=== PATIENT | female | born 1970 | race Caucasian/White ===

== ENCOUNTER 2018-04-29 08:00 | Inpatient (IN) | payer BC ==
[~2018-04-29 08:00] MED LIST: Lactated Ringers 1,000 ML IV ONE; Sensorcaine 0.25% 10 ML ONE
[2018-04-29] MEDS ORDERED: CEFAZOLIN 2 GM-D5W BAG** 2 GM/50 ML ML IV ONE (08:20)
[2018-04-29] MEDS ORDERED: Lactated Ringers 1,000 ML IV ONE (08:20)
[2018-04-29] MEDS ORDERED: Lactated Ringers 1,000 ML IV SCH (08:30)
[2018-04-29] MEDS ORDERED: CEFAZOLIN 2 GM-D5W BAG** 2 GM/50 ML ML IV SCH (08:30)
[2018-04-29] MEDS ORDERED: Lactated Ringers 2,000 ML IV ONE (11:58)
[2018-04-29] MEDS ORDERED: DILAUDID 2 MG INJECTION ONE (13:06)
[2018-04-29] MEDS ORDERED: DILAUDID 1 MG/1ML PCA IV PRN (13:45)
[2018-04-29] MEDS ORDERED: FEVERALL 650 MG RC PRN (13:46)
[2018-04-29] MEDS ORDERED: TYLENOL 325 MG PO PRN (13:46)
[2018-04-29] MEDS: D5W/0.45NS W/ 20mEq KCl 1000 ML 1,000 ML IV SCH ×2 (13:55→23:28)
[2018-04-29] MEDS: Zofran 4 MG/2 ML VIAL IVIM PRN (14:09)
[2018-04-29] MEDS: MEFOXIN 2 GM** 2 GM in Dextrose 5%/Water IV Soln. 100ML PLUS BAG 100 ML IV SCH ×2 (14:54→21:22)
[2018-04-29] MEDS ORDERED: Zofran 4 MG/2 ML VIAL IV ONE (14:55)
[2018-04-29] MEDS ORDERED: Decadron 4 MG INJ IV ONE (14:55)
[2018-04-29] MEDS ORDERED: SUBLIMAZE 100 MCG/2 ML IV ONE (14:55)
[2018-04-29] MEDS ORDERED: TORAdol 30 mg Injection IJ ONE (14:55)
[2018-04-29] MEDS ORDERED: BRIDION 200MG/2ML IV ONE (14:55)
[2018-04-29] MEDS ORDERED: Lasix 40 MG/4 ML IV ONE (14:55)
[2018-04-29] MEDS ORDERED: DIPRIVAN 200 MG/20 ML IV ONE (14:55)
[2018-04-29] MEDS ORDERED: Zemuron 100 MG/10 ML IJ ONE (14:55)
[2018-04-29] MEDS ORDERED: DILAUDID 2 MG INJECTION IV ONE ×2 (14:55→15:30)
[2018-04-29] MEDS ORDERED: Quelicin Fliptop 200 MG/10 ML IJ ONE (14:55)
[2018-04-29] MEDS ORDERED: FLUZONE QUAD (36mo-64yo) 2018-2019 SYRINGE IM ONE (15:45)
[2018-04-29] MEDS: Carafate 1 GM PO SCH ×2 (15:49→21:22)
[2018-04-29] MEDS: DILAUDID 1 MG/1ML PCA IV PRN (16:44)
[2018-04-29] MEDS: BENADRYL 50 MG/ML IV PRN (18:10)
[2018-04-30] MEDS: BENADRYL 50 MG/ML IV PRN (00:11)
[2018-04-30] MEDS: Zofran 4 MG/2 ML VIAL IVIM PRN ×3 (02:21→20:39)
[2018-04-30 05:33] LABS: Hematocrit 41.4 % (35-47); Hemoglobin 13.8 gm/dl (12.0-16.0); Mean Cell Volume 88.7 fl (78-100); Mean Corpuscular Hemoglobin 29.6 pg (26-32); Mean Corpuscular Hgb Concent. 33.3 g/dl (32-36); Mean Platelet Volume 10.7 fl (6-9.5); Platelet Count 282 K/mm3 (150-450); Red Blood Count 4.67 M/mm3 (4.1-5.4); Red Cell Distribution Width 13.7 % (11.5-14.0)
[2018-04-30 05:41] LABS: White Blood Count 29.8 K/mm3 (4.0-10.5)
[2018-04-30] MEDS: MEFOXIN 2 GM** 2 GM in Dextrose 5%/Water IV Soln. 100ML PLUS BAG 100 ML IV SCH (05:49)
[2018-04-30 05:51] LABS: ALBUMIN 4.2 g/dL (3.5-5.0); ALKALINE PHOSPHATASE 81 U/L (38-126); BLOOD UREA NITROGEN 10 mg/dL (7-17); CHLORIDE 100 mmol/L (98-107); Calcium 8.6 mg/dL (8.4-10.2); Carbon Dioxide 27 mmol/L (22-30); Creatinine 1 0.66 mg/dL (0.52-1.04); Glucose 142 mg/dL (74-106); Potassium 4.4 mmol/L (3.5-5.1); SGOT/AST 33 U/L (14-36); SGPT/ALT 40 U/L (0-35); SODIUM 136 mmol/L (137-145); Total Protein 7.2 g/dL (6.3-8.2)
[2018-04-30] MEDS: ENOXAPARIN SODIUM SQ SCH (06:31)
[2018-04-30] MEDS: Carafate 1 GM PO SCH (06:31)
[2018-04-30] MEDS: FLAGYL 500 MG IVPB 500 MG/100 ML BAG IV SCH ×3 (06:58→21:48)
[2018-04-30 07:08] LABS: BAND 18 % (0.0-2.0); Lymphocytes 11 % (24-44); Monocyte 3 % (0.0-12.0); Neutrophils 68 % (36.0-66.0); Platelet Estimate NORMAL (NORMAL); Total Cells Counted 100
[2018-04-30 07:09] LABS: ANISOCYTOSIS 1+; Poikilocytosis 1+
[2018-04-30 07:11] LABS: ABSOLUTE NEUTROPHILS 24.89 (1.4-6.9)
[2018-04-30] MEDS: Zosyn 3.375GM/100 Ml D5W 3.375 GM/100 ML IVPB IV SCH ×3 (07:35→18:31)
[2018-04-30] MEDS ORDERED: Sodium Chloride 0.9% 500 ML 500 ML IV ONE (08:02)
[2018-04-30] MEDS: Phenergan 25 MG INJ IV PRN ×2 (08:09→14:15)
[2018-04-30] MEDS: D5W/0.45NS W/ 20mEq KCl 1000 ML 1,000 ML IV SCH ×2 (09:25→18:31)
[2018-04-30] MEDS ORDERED: Zosyn 3.375GM/100 Ml D5W 3.375 GM/100 ML IVPB IV SCH (12:00)
[2018-04-30] MEDS: DILAUDID 1 MG/1ML PCA IV PRN ×2 (12:25→18:37)
--- NOTE | 2018-04-30 16:46 | PCM.HP ---
History of Present Illness - Chief Complaint Chief Complaint: sigmoid stricture and sever adhesions. History of Present Illness: is a 47 year old female pt of [facility], Araceli Coffman NP , who came to see Dr. Mónica Kraus c/o chronic bowel issues. Hx multiple abdominal surgeries. She was scheduled for EGD/colonoscopy and found to have adhesions. Had laparoscopy and BLAKE, no colon was removed apparently. She is ordered to be on NG, unclamped, and NPO for several days. Pt has a hx of several DVT and a PE, all postoperatively. Was apparently on a blood thinner temporarily but was not prescribed one prior to admission here. Surgery ordered lovenox currently. This morning her WBC count was 29,000. Surgery started her on IV flagyl and zosyn. Her BP this morning was 90 systolic. She received a 500cc bolus of fluid and since then has been normotensive (currently 130s systolic). She has been up walking today (NG temporarily clamped for that with surgery's OK). Has used 1.6mg dilaudid today in her [employer]. - Review of Systems Constitutional: No Fever Abdominal/Gastrointestinal: Abdominal Pain, Vomiting Medications & Allergies Home Medications: Home Medication List Aspirin/Acetaminophen/Caffeine [Excedrin Migraine Caplet] 1 each PO Q6H PRN [History Confirmed 04/29/18] Hydrocodone Bit/Acetaminophen [Lortab 7.5-500 Tablet] 1 - 2 each PO Q4H PRN [History Confirmed 04/29/18] Multivitamin [Multivitamins] 1 each PO DAILY 04/21/18 [History Confirmed ] Sucralfate 1 gm [Carafate 1 GM] 1 g PO ACHS 04/21/18 [History Confirmed ] Allergies/Adverse Reactions: Allergies Allergy/AdvReac Type Severity Reaction Status Date / Time codeine Allergy Verified 04/29/18 08:31 fentanyl Allergy Verified 04/29/18 08:31 prochlorperazine Allergy Verified 04/29/18 08:31 [From Compazine] - Past Medical History Past Medical History: Yes Neurological History: No Pertinent History ENT History: No Pertinent History Cardiac History: Deep Vein Thrombosis Respiratory History: No Pertinent History Endocrine Medical History: No Pertinent History Musculoskelatal History: Other GI Medical History: Diverticulosis, Other History: No Pertinent History Pyscho-Social History: Anxiety Reproductive Disorders: Other Comment: Abdominal adhesions - Female History Are you now?: No - Past Surgical History Past Surgical History: Yes Neuro Surgical History: No Pertinent History Cardiac History: No Pertinent History Respiratory Surgery: No Pertinent History GI Surgical History: Appendectomy, Cholecystectomy Genitourinary Surgical Hx: No Pertinent History Musculskeletal Surgical Hx: No Pertinent History Female Surgical History: Hysterectomy, Tubal Ligation Other Surgical History: Lysis of abdominal adhesions x6 - Social History Smoking Status: Current every day smoker How long have you smoked: 25 years Exposure to second hand smoke: Yes Alcohol: None Drug Use: none - Physical Exam Vital Signs: Vital Signs - 24 hr Temp Pulse Resp BP Pulse Ox 04/30/18 16:01 98.6 F 94 H 20 132/78 98 04/30/18 12:25 96 04/30/18 12:00 20 96 04/30/18 11:02 98.9 F 84 20 117/67 96 04/30/18 09:40 82 18 94/68 96 04/30/18 08:59 94 L 04/30/18 07:45 20 04/30/18 06:58 99 F 90 20 90/52 96 04/30/18 06:46 95 04/30/18 05:56 94 L 04/30/18 05:00 93 L 04/30/18 04:44 96 04/30/18 04:00 17 04/30/18 03:40 98.7 F 87 18 98/58 94 L 04/30/18 01:44 93 H 20 93 L 04/30/18 00:59 93 L 04/30/18 00:44 94 L 04/30/18 00:00 17 04/29/18 23:41 97.9 F 84 17 112/73 93 L 04/29/18 20:44 94 L 04/29/18 20:00 18 94 L 04/29/18 19:33 97.9 F 88 18 110/80 93 L 04/29/18 17:53 92 L 04/29/18 17:13 86 16 92 L 04/29/18 17:12 92 L 04/29/18 16:44 93 L Oxygen-Last 24 hours O2 Percentage 4 Liters = 36% O2 Percentage 4 Liters = 36% O2 Percentage 4 Liters = 36% O2 Percentage 4 Liters = 36% O2 Percentage 4 Liters = 36% O2 Percentage 4 Liters = 36% General Appearance: mild distress (sitting quietly with a washcloth on her head , with hand on emesis bag), No obese Neurologic Exam: alert, cooperative Neck Exam: normal inspection Respiratory Exam: normal breath sounds, lungs clear, No crackles/rales, No rhonchi, No wheezing Cardiovascular Exam: regular rate/rhythm, normal heart sounds, No murmur Gastrointestinal/Abdomen Exam: soft, No normal bowel sounds (hypoactive bowel sounds but present. dressing present midline. abd binder present.) Results - Labs Lab/Micro Results: Lab Results-Last 24 Hours 04/30/18 04/30/18 Range/Units 05:10 05:36 WBC 29.8 H* (4.0-10.5) K/mm3 RBC 4.67 (4.1-5.4) M/mm3 Hgb 13.8 (12.0-16.0) gm/dl Hct 41.4 (35-47) % MCV 88.7 (78-100) fl MCH 29.6 (26-32) pg MCHC 33.3 (32-36) g/dl RDW 13.7 (11.5-14.0) % Plt Count 282 (150-450) K/mm3 MPV 10.7 H (6-9.5) fl Absolute Neutrophils 24.89 (1.4-6.9) Segmented Neutrophils 68 H (36.0-66.0) % Band Neutrophils 18 H (0.0-2.0) % Lymphocytes (Manual) 11 L (24-44) % Monocytes (Manual) 3 (0.0-12.0) % Platelet Estimate NORMAL (NORMAL) RBC Morphology ABNORMAL Poikilocytosis 1+ Anisocytosis 1+ Smear Path Review Pending Sodium 136 L (137-145) mmol/L Potassium 4.4 (3.5-5.1) mmol/L Chloride 100 (98-107) mmol/L Carbon Dioxide 27 (22-30) mmol/L Anion Gap 14.0 (5-15) MEQ/L BUN 10 (7-17) mg/dL Creatinine 0.66 (0.52-1.04) mg/dL Estimated GFR > 60.0 ML/MIN Glucose 142 H (74-106) mg/dL Calcium 8.6 (8.4-10.2) mg/dL Total Bilirubin 0.40 (0.2-1.3) mg/dL AST 33 (14-36) U/L ALT 40 H (0-35) U/L Alkaline Phosphatase 81 (38-126) U/L Serum Total Protein 7.2 (6.3-8.2) g/dL Albumin 4.2 (3.5-5.0) g/dL Microbiology 04/29/18 10:34 Urine Culture - Preliminary Urine, Catheterized NO GROWTH TO DATE - Other Procedures and Tests Respiratory Therapy 04/29/18 17:08 Oxygen NASAL CANNULA 4 lpm 04/30/18 12:01 Incentive Spirometry TID Assessment/Plan (1) s/p lysis of adhesions Current Visit: Yes Status: Acute Assessment & Plan: POD #1. Doing much better this afternoon - BP normalized and pt out of bed. Recheck WBC tomorrow. (2) Hx of deep venous thrombosis Current Visit: Yes Status: Chronic Code(s): Z86.718 - PERSONAL HISTORY OF OTHER VENOUS THROMBOSIS AND EMBOLISM (3) Elevated WBC count Current Visit: Yes Status: Acute Code(s): D72.829 - ELEVATED WHITE BLOOD CELL COUNT, UNSPECIFIED
[2018-05-01] MEDS: Zosyn 3.375GM/100 Ml D5W 3.375 GM/100 ML IVPB IV SCH ×4 (00:07→17:37)
[2018-05-01] MEDS: Phenergan 25 MG INJ IV PRN ×5 (00:17→22:42)
[2018-05-01] MEDS: D5W/0.45NS W/ 20mEq KCl 1000 ML 1,000 ML IV SCH ×3 (03:17→20:31)
[2018-05-01] MEDS: Zofran 4 MG/2 ML VIAL IVIM PRN ×2 (03:17→10:52)
[2018-05-01 05:14] LABS: Hematocrit 36.8 % (35-47); Hemoglobin 12.1 gm/dl (12.0-16.0); Mean Cell Volume 90.2 fl (78-100); Mean Corpuscular Hgb Concent. 32.9 g/dl (32-36); Mean Platelet Volume 10.8 fl (6-9.5); Platelet Count 251 K/mm3 (150-450); Red Blood Count 4.08 M/mm3 (4.1-5.4); Red Cell Distribution Width 13.7 % (11.5-14.0); White Blood Count 22.2 K/mm3 (4.0-10.5)
[2018-05-01 05:19] LABS: Mean Corpuscular Hemoglobin 29.6 pg (26-32)
[2018-05-01 05:30] LABS: ALBUMIN 3.7 g/dL (3.5-5.0); ALKALINE PHOSPHATASE 82 U/L (38-126); ANION GAP 11.2 MEQ/L (5-15); BLOOD UREA NITROGEN 6 mg/dL (7-17); CHLORIDE 100 mmol/L (98-107); Calcium 8.5 mg/dL (8.4-10.2); Carbon Dioxide 28 mmol/L (22-30); Creatinine 1 0.66 mg/dL (0.52-1.04); Glucose 139 mg/dL (74-106); Potassium 3.9 mmol/L (3.5-5.1); SGOT/AST 25 U/L (14-36); SGPT/ALT 31 U/L (0-35); SODIUM 135 mmol/L (137-145); Total Protein 6.8 g/dL (6.3-8.2)
[2018-05-01] MEDS: FLAGYL 500 MG IVPB 500 MG/100 ML BAG IV SCH ×3 (06:18→21:19)
[2018-05-01] MEDS: ENOXAPARIN SODIUM SQ SCH (06:22)
--- NOTE | 2018-05-01 07:50 | PCM.NOTE ---
Date and Time: 05/01/18747 Subjective Assessment: patient still having signficant pain and nausea, NG still has large output of dark material. no flatus or BM Objective Exam General Appearance: no apparent distress, alert Respiratory Exam: normal breath sounds, lungs clear, No respiratory distress Cardiovascular Exam: regular rate/rhythm, normal heart sounds Gastrointestinal/Abdomen Exam: soft, No normal bowel sounds (absent bowel sounds dressing clean, dry, intact) Extremity Exam: normal inspection, normal range of motion OBJECTIVE DATA Vital Signs: Vital Signs - 24 hr Temp Pulse Resp BP Pulse Ox 05/01/18 07:25 98.6 F 77 20 124/63 93 L 05/01/18 06:33 92 L 05/01/18 04:20 98.7 F 102 H 18 123/62 92 L 05/01/18 04:00 20 05/01/18 02:37 92 L 05/01/18 00:10 98.8 F 99 H 17 122/63 91 L 05/01/18 00:00 18 04/30/18 22:37 92 L 04/30/18 20:20 85 18 92 L 04/30/18 20:00 20 04/30/18 18:55 99.2 F 90 16 120/59 94 L 04/30/18 18:47 94 L 04/30/18 18:37 94 L 04/30/18 16:10 93 L 04/30/18 16:01 98.6 F 94 H 20 132/78 98 04/30/18 12:25 96 04/30/18 12:00 20 96 04/30/18 11:02 98.9 F 84 20 117/67 96 04/30/18 09:40 82 18 94/68 96 04/30/18 08:59 94 L Oxygen-Last 24 hours O2 Percentage 4 Liters = 36% O2 Percentage 4 Liters = 36% O2 Percentage 4 Liters = 36% O2 Percentage 4 Liters = 36% O2 Percentage 4 Liters = 36% O2 Percentage 4 Liters = 36% Pain Assessment - Last Documented Pain Intensity [Anterior] 4 Pain Intensity 3 Pain Scale Used 0-10 Pain Scale,FLACC Intake and Output: Intake & Output 04/28/18 04/29/18 04/30/18 05/01/18 11:59 11:59 11:59 11:59 Intake Total 1708 3859 Output Total 1500 2600 Balance 208 1259 Weight 83.2 kg 83.2 kg Lab Results: Lab Results-Last 24 Hours 05/01/18 05/01/18 Range/Units 05:05 05:05 WBC 22.2 H (4.0-10.5) K/mm3 RBC 4.08 L (4.1-5.4) M/mm3 Hgb 12.1 (12.0-16.0) gm/dl Hct 36.8 (35-47) % MCV 90.2 (78-100) fl MCH 29.6 (26-32) pg MCHC 32.9 (32-36) g/dl RDW 13.7 (11.5-14.0) % Plt Count 251 (150-450) K/mm3 MPV 10.8 H (6-9.5) fl Sodium 135 L (137-145) mmol/L Potassium 3.9 (3.5-5.1) mmol/L Chloride 100 (98-107) mmol/L Carbon Dioxide 28 (22-30) mmol/L Anion Gap 11.2 (5-15) MEQ/L BUN 6 L (7-17) mg/dL Creatinine 0.66 (0.52-1.04) mg/dL Estimated GFR > 60.0 ML/MIN Glucose 139 H (74-106) mg/dL Calcium 8.5 (8.4-10.2) mg/dL Total Bilirubin 0.40 (0.2-1.3) mg/dL AST 25 (14-36) U/L ALT 31 (0-35) U/L Alkaline Phosphatase 82 (38-126) U/L Serum Total Protein 6.8 (6.3-8.2) g/dL Albumin 3.7 (3.5-5.0) g/dL Multi-Disciplinary Progress Notes: Multi-Disciplinary Progress Notes 04/30/18 14:26 Respiratory Note by Daria Ortiz PT DOING INCENTIVE ON OWN Initialized on 04/30/18 14:26 - END OF NOTE Assessment/Plan (1) Elevated WBC count Current Visit: Yes Status: Acute Assessment & Plan: improved, continue zosyn and flagyl at this time and continue to follow. encouraged ambulation to help resolve post-op ileus Code(s): D72.829 - ELEVATED WHITE BLOOD CELL COUNT, UNSPECIFIED (2) s/p lysis of adhesions Current Visit: Yes Status: Acute
[2018-05-01] MEDS ORDERED: CHLORASEPTIC SPRAY 180 ML PO PRN (09:19)
[2018-05-01] MEDS: Zofran 4 MG/2 ML VIAL IV PRN ×2 (15:35→20:31)
[2018-05-01] MEDS ORDERED: PROTONIX 40 MG IV IV ONE (17:34)
[2018-05-01] MEDS ORDERED: PROTONIX 40 MG IV IV SCH (17:45)
[2018-05-01] MEDS: DILAUDID 1 MG/1ML PCA IV PRN (18:08)
[2018-05-01] MEDS: BENADRYL 50 MG/ML IV PRN (20:31)
[2018-05-02] MEDS: Zofran 4 MG/2 ML VIAL IV PRN ×3 (00:36→16:07)
[2018-05-02] MEDS: Zosyn 3.375GM/100 Ml D5W 3.375 GM/100 ML IVPB IV SCH ×4 (00:37→17:26)
[2018-05-02] MEDS: D5W/0.45NS W/ 20mEq KCl 1000 ML 1,000 ML IV SCH ×2 (05:25→13:06)
[2018-05-02 05:42] LABS: Hematocrit 33.9 % (35-47); Hemoglobin 11.2 gm/dl (12.0-16.0); Mean Cell Volume 89.7 fl (78-100); Mean Corpuscular Hemoglobin 29.6 pg (26-32); Mean Platelet Volume 11.1 fl (6-9.5); Platelet Count 235 K/mm3 (150-450); Red Blood Count 3.78 M/mm3 (4.1-5.4); Red Cell Distribution Width 13.4 % (11.5-14.0); White Blood Count 18.4 K/mm3 (4.0-10.5)
[2018-05-02 06:04] LABS: ALBUMIN 3.6 g/dL (3.5-5.0); ALKALINE PHOSPHATASE 88 U/L (38-126); ANION GAP 9.7 MEQ/L (5-15); BLOOD UREA NITROGEN 5 mg/dL (7-17); CHLORIDE 98 mmol/L (98-107); Calcium 8.4 mg/dL (8.4-10.2); Carbon Dioxide 31 mmol/L (22-30); Glucose 133 mg/dL (74-106); Potassium 3.7 mmol/L (3.5-5.1); SGOT/AST 24 U/L (14-36); SGPT/ALT 28 U/L (0-35); SODIUM 135 mmol/L (137-145); Total Protein 6.6 g/dL (6.3-8.2)
[2018-05-02] MEDS: FLAGYL 500 MG IVPB 500 MG/100 ML BAG IV SCH ×3 (06:09→21:37)
[2018-05-02] MEDS: ENOXAPARIN SODIUM SQ SCH (06:12)
--- NOTE | 2018-05-02 08:29 | PCM.NOTE ---
Date and Time: 05/02/18827 Subjective Assessment: patient feeling better, out of bed x 3 yesterday. has had some flatus, no bowel movement since surgery Objective Exam General Appearance: no apparent distress, alert Respiratory Exam: normal breath sounds Cardiovascular Exam: regular rate/rhythm, normal heart sounds Gastrointestinal/Abdomen Exam: soft (dressing c/d/i, abdomen soft. decreased audible bowel sounds) Extremity Exam: normal inspection, normal range of motion OBJECTIVE DATA Vital Signs: Vital Signs - 24 hr Temp Pulse Resp BP Pulse Ox 05/02/18 07:57 97.7 F 77 18 137/79 91 L 05/02/18 07:38 84 18 93 L 05/02/18 06:08 91 L 05/02/18 04:17 97.7 F 74 18 135/73 87 L 05/02/18 04:00 18 05/02/18 02:08 92 L 05/02/18 00:00 18 05/01/18 23:58 98.7 F 91 H 18 136/85 92 L 05/01/18 22:08 92 L 05/01/18 21:27 95 05/01/18 19:57 16 05/01/18 19:28 98.2 F 88 16 125/81 93 L 05/01/18 18:08 93 L 05/01/18 16:00 20 93 L 05/01/18 15:42 98.7 F 99 H 20 138/88 92 L 05/01/18 12:00 20 05/01/18 11:21 97.8 F 97 H 20 123/74 93 L 05/01/18 11:18 93 L 05/01/18 09:32 93 L Oxygen-Last 24 hours O2 Percentage 4 Liters = 36% O2 Percentage 4 Liters = 36% O2 Percentage 4 Liters = 36% O2 Percentage 4 Liters = 36% O2 Percentage 4 Liters = 36% O2 Percentage 4 Liters = 36% Pain Assessment - Last Documented Pain Intensity [Anterior] 4 Pain Intensity 4 Pain Scale Used 0-10 Pain Scale,FLACC Intake and Output: Intake & Output 04/29/18 04/30/18 05/01/18 05/02/18 11:59 11:59 11:59 11:59 Intake Total 1708 3859 3305 Output Total 1500 2850 1575 Balance 208 1009 1730 Weight 83.2 kg 83.2 kg Lab Results: Lab Results-Last 24 Hours 05/02/18 05/02/18 Range/Units 05:15 05:15 WBC 18.4 H (4.0-10.5) K/mm3 RBC 3.78 L (4.1-5.4) M/mm3 Hgb 11.2 L (12.0-16.0) gm/dl Hct 33.9 L (35-47) % MCV 89.7 (78-100) fl MCH 29.6 (26-32) pg MCHC 33.0 (32-36) g/dl RDW 13.4 (11.5-14.0) % Plt Count 235 (150-450) K/mm3 MPV 11.1 H (6-9.5) fl Sodium 135 L (137-145) mmol/L Potassium 3.7 (3.5-5.1) mmol/L Chloride 98 (98-107) mmol/L Carbon Dioxide 31 H (22-30) mmol/L Anion Gap 9.7 (5-15) MEQ/L BUN 5 L (7-17) mg/dL Creatinine 0.60 (0.52-1.04) mg/dL Estimated GFR > 60.0 ML/MIN Glucose 133 H (74-106) mg/dL Calcium 8.4 (8.4-10.2) mg/dL Total Bilirubin 0.40 (0.2-1.3) mg/dL AST 24 (14-36) U/L ALT 28 (0-35) U/L Alkaline Phosphatase 88 (38-126) U/L Serum Total Protein 6.6 (6.3-8.2) g/dL Albumin 3.6 (3.5-5.0) g/dL Assessment/Plan (1) Elevated WBC count Current Visit: Yes Status: Acute Assessment & Plan: improving, continue zosyn and flagyl Code(s): D72.829 - ELEVATED WHITE BLOOD CELL COUNT, UNSPECIFIED (2) Postoperative ileus Current Visit: Yes Status: Acute Assessment & Plan: will defer to surgery when to clamp/remove NG but improving clinically Code(s): K91.89 - OTH POSTPROCEDURAL COMPLICATIONS AND DISORDERS OF DGSTV SYS; K56.7 - ILEUS, UNSPECIFIED (3) s/p lysis of adhesions Current Visit: Yes Status: Acute
[2018-05-02] MEDS: Phenergan 25 MG INJ IV PRN ×3 (08:41→19:54)
[2018-05-02] MEDS: PROTONIX 40 MG IV IV SCH (21:39)
[2018-05-03] MEDS: Zosyn 3.375GM/100 Ml D5W 3.375 GM/100 ML IVPB IV SCH ×5 (00:03→23:15)
[2018-05-03] MEDS: DILAUDID 1 MG/1ML PCA IV PRN ×2 (00:47→23:18)
[2018-05-03] MEDS: D5W/0.45NS W/ 20mEq KCl 1000 ML 1,000 ML IV SCH ×5 (01:35→21:31)
[2018-05-03 05:47] LABS: Hematocrit 34.1 % (35-47); Hemoglobin 11.2 gm/dl (12.0-16.0); Mean Cell Volume 89.7 fl (78-100); Mean Corpuscular Hgb Concent. 32.8 g/dl (32-36); Mean Platelet Volume 10.8 fl (6-9.5); Platelet Count 251 K/mm3 (150-450); Red Cell Distribution Width 13.2 % (11.5-14.0)
[2018-05-03 05:48] LABS: Mean Corpuscular Hemoglobin 29.4 pg (26-32)
[2018-05-03 06:12] LABS: ALBUMIN 3.4 g/dL (3.5-5.0); ALKALINE PHOSPHATASE 88 U/L (38-126); ANION GAP 9.6 MEQ/L (5-15); BLOOD UREA NITROGEN 5 mg/dL (7-17); CHLORIDE 97 mmol/L (98-107); Calcium 8.6 mg/dL (8.4-10.2); Carbon Dioxide 34 mmol/L (22-30); Creatinine 1 0.69 mg/dL (0.52-1.04); Glucose 121 mg/dL (74-106); Potassium 3.4 mmol/L (3.5-5.1); SGOT/AST 17 U/L (14-36); SGPT/ALT 25 U/L (0-35); SODIUM 137 mmol/L (137-145); Total Protein 6.5 g/dL (6.3-8.2)
[2018-05-03] MEDS: ENOXAPARIN SODIUM SQ SCH (06:24)
[2018-05-03] MEDS: FLAGYL 500 MG IVPB 500 MG/100 ML BAG IV SCH ×3 (06:24→21:31)
[2018-05-03] MEDS ORDERED: TORAdol 30 mg Injection IV ONE ×2 (08:30→15:20)
--- NOTE | 2018-05-03 08:33 | PCM.NOTE ---
Date and Time: 05/03/18821 Subjective Assessment: Pt feeling better. Up to bathroom; has had a BM (green, no blood). Sipping water, but would like "anything with taste." Using dilaudid [employer]GET[employer] infrequently. C/o CURIEL for the past several days (she feels dilaudid exacerbates her CURIEL). - Review of Systems Constitutional: No Fever Abdominal/Gastrointestinal: Abdominal Pain Objective Exam General Appearance: no apparent distress, alert Neurologic Exam: oriented x 3, cooperative Skin Exam: normal color, warm, dry, No rash Ears, Nose, Throat Exam: moist mucous membranes Neck Exam: normal inspection Respiratory Exam: normal breath sounds, lungs clear, No crackles/rales, No rhonchi, No wheezing Cardiovascular Exam: regular rate/rhythm, normal heart sounds, No murmur Gastrointestinal/Abdomen Exam: soft, tenderness (generalized), other (dressing clean/dry/intact), No normal bowel sounds (hypoactive, but present), No distention Extremity Exam: No pedal edema, No swelling OBJECTIVE DATA Vital Signs: Vital Signs - 24 hr Temp Pulse Resp BP Pulse Ox 05/03/18 07:48 99.3 F 81 18 116/66 96 05/03/18 07:18 98 05/03/18 04:47 92 L 05/03/18 04:16 98.6 F 88 16 125/76 95 05/03/18 04:00 18 05/03/18 00:47 96 05/03/18 00:00 18 05/02/18 23:31 99.2 F 91 H 16 106/56 96 05/02/18 20:00 18 05/02/18 19:40 98.9 F 88 18 117/70 94 L 05/02/18 16:00 98.7 F 75 18 128/70 94 L 05/02/18 11:46 97.7 F 83 20 142/79 94 L 05/02/18 11:18 16 05/02/18 10:08 92 L 05/02/18 08:40 18 Oxygen-Last 24 hours O2 Percentage 5 Liters = 40% O2 Percentage 4 Liters = 36% O2 Percentage 4 Liters = 36% O2 Percentage 4 Liters = 36% O2 Percentage 4 Liters = 36% O2 Percentage 5 Liters = 40% Pain Assessment - Last Documented Pain Intensity [Anterior] 4 Pain Intensity 4 Pain Scale Used 0-10 Pain Scale,FLACC Intake and Output: Intake & Output 04/30/18 05/01/18 05/02/18 05/03/18 11:59 11:59 11:59 11:59 Intake Total 1708 3859 3305 1278 Output Total 1500 2850 1575 3100 Balance 208 1009 1730 -1822 Weight 83.2 kg Lab Results: Lab Results-Last 24 Hours 05/03/18 05/03/18 Range/Units 05:30 05:30 WBC 13.0 H (4.0-10.5) K/mm3 RBC 3.80 L (4.1-5.4) M/mm3 Hgb 11.2 L (12.0-16.0) gm/dl Hct 34.1 L (35-47) % MCV 89.7 (78-100) fl MCH 29.4 (26-32) pg MCHC 32.8 (32-36) g/dl RDW 13.2 (11.5-14.0) % Plt Count 251 (150-450) K/mm3 MPV 10.8 H (6-9.5) fl Sodium 137 (137-145) mmol/L Potassium 3.4 L (3.5-5.1) mmol/L Chloride 97 L (98-107) mmol/L Carbon Dioxide 34 H (22-30) mmol/L Anion Gap 9.6 (5-15) MEQ/L BUN 5 L (7-17) mg/dL Creatinine 0.69 (0.52-1.04) mg/dL Estimated GFR > 60.0 ML/MIN Glucose 121 H (74-106) mg/dL Calcium 8.6 (8.4-10.2) mg/dL Total Bilirubin 0.50 (0.2-1.3) mg/dL AST 17 (14-36) U/L ALT 25 (0-35) U/L Alkaline Phosphatase 88 (38-126) U/L Serum Total Protein 6.5 (6.3-8.2) g/dL Albumin 3.4 L (3.5-5.0) g/dL Assessment/Plan (1) s/p lysis of adhesions Current Visit: Yes Status: Acute Assessment & Plan: POD #4 - doing much better. NG tube is out. Has had BM. Await surgery orders for advancing diet. (2) Hx of deep venous thrombosis Current Visit: Yes Status: Chronic Assessment & Plan: on lovenox. Code(s): Z86.718 - PERSONAL HISTORY OF OTHER VENOUS THROMBOSIS AND EMBOLISM (3) Elevated WBC count Current Visit: Yes Status: Acute Assessment & Plan: much improved. Code(s): D72.829 - ELEVATED WHITE BLOOD CELL COUNT, UNSPECIFIED (4) Headache Current Visit: Yes Status: Acute Qualifiers: Headache type: tension-type Headache chronicity pattern: acute headache Intractability: intractable Qualified Code(s): G44.201 - Tension-type headache , unspecified, intractable Assessment & Plan: could be related to the dilaudid. Will give toradol if ok with surgery. If she starts taking po could add tylenol. Code(s): R51 - HEADACHE (5) Hypokalemia Current Visit: Yes Status: Acute Assessment & Plan: mild - anticipate with po intake increasing it will resolve. Code(s): E87.6 - HYPOKALEMIA
[2018-05-03] MEDS: Zofran 4 MG/2 ML VIAL IV PRN ×2 (11:54→19:57)
[2018-05-03] MEDS: Phenergan 25 MG INJ IV PRN (14:35)
[2018-05-03] MEDS ORDERED: TORAdol 30 mg Injection IV PRN (15:20)
[2018-05-03] MEDS: PROTONIX 40 MG IV IV SCH (19:56)
[2018-05-04] MEDS: Zosyn 3.375GM/100 Ml D5W 3.375 GM/100 ML IVPB IV SCH ×3 (05:35→16:50)
[2018-05-04] MEDS: FLAGYL 500 MG IVPB 500 MG/100 ML BAG IV SCH ×2 (05:35→15:21)
[2018-05-04] MEDS: Zofran 4 MG/2 ML VIAL IV PRN (05:35)
[2018-05-04 05:44] LABS: Hematocrit 31.1 % (35-47); Hemoglobin 10.1 gm/dl (12.0-16.0); Mean Cell Volume 89.6 fl (78-100); Mean Corpuscular Hemoglobin 29.1 pg (26-32); Mean Corpuscular Hgb Concent. 32.5 g/dl (32-36); Mean Platelet Volume 10.1 fl (6-9.5); Platelet Count 259 K/mm3 (150-450); Red Blood Count 3.47 M/mm3 (4.1-5.4); Red Cell Distribution Width 13.2 % (11.5-14.0); White Blood Count 10.3 K/mm3 (4.0-10.5)
[2018-05-04 06:18] LABS: ALBUMIN 3.3 g/dL (3.5-5.0); ALKALINE PHOSPHATASE 89 U/L (38-126); ANION GAP 9.3 MEQ/L (5-15); BLOOD UREA NITROGEN 5 mg/dL (7-17); CHLORIDE 98 mmol/L (98-107); Calcium 8.4 mg/dL (8.4-10.2); Carbon Dioxide 33 mmol/L (22-30); Glucose 116 mg/dL (74-106); Potassium 3.3 mmol/L (3.5-5.1); SGOT/AST 18 U/L (14-36); SGPT/ALT 21 U/L (0-35); SODIUM 137 mmol/L (137-145); Total Protein 6.3 g/dL (6.3-8.2)
[2018-05-04] MEDS: DILAUDID 1 MG/1ML PCA IV PRN (06:40)
[2018-05-04] MEDS: D5W/0.45NS W/ 20mEq KCl 1000 ML 1,000 ML IV SCH ×2 (07:39→16:54)
[2018-05-04] MEDS: ENOXAPARIN SODIUM SQ SCH (07:43)
[2018-05-04] MEDS: NORCO 5/325 MG PO PRN ×4 (07:43→23:11)
--- NOTE | 2018-05-04 09:55 | OP ---
PROCEDURE DATE/TIME: 04/29/2018 1023 PREOPERATIVE DIAGNOSIS: Intra-abdominal adhesions with sigmoid stricture. POSTOPERATIVE DIAGNOSIS: Severe intra-abdominal adhesions causing partial obstruction of the sigmoid colon. PROCEDURE: Exploratory laparotomy with lysis of adhesions. PROCEDURE PERFORMED BY: Mónica Kraus M.D. ASSITANT SURGEON: Nitin Kraus M.D. COMPLICATIONS: None. ESTIMATED BLOOD LOSS: Minimal less than 50 cc. ANESTHESIA: General. SPECIMEN: None. HISTORY: This is a 47 year-old female well known to our practice. She has had multiple lysis of adhesion surgeries in the past as well as previous multiple abdominal surgeries. She presents due to GI symptoms. She has already had her scope. She also has had an enema. On enema there showed to be an area that has potential narrowing during the actual enema and on the live view the contrast appeared to have difficulty going past this area due to a potential kink and this likely is due to adhesions from prior surgery. There was no intraluminal lesion identified on her colonoscopy. Due to the patient's persistent symptoms, I have discussed all the risks, benefits and alternatives to surgery. She understands and agrees and would like to proceed. She was seen in the preoperative area. Her H&P and consent reviewed with her and confirmed. DESCRIPTION OF PROCEDURE: She was then brought back to the operative suite. Anesthesia induced. She was prepped and draped in usual sterile fashion. Complete time out performed. A midline laparotomy was made using the patient's prior incision. Incision taken down through skin, subcutaneous tissue. Fascia opened. Peritoneum opened. Remaining incision opened. Immediately upon opening the abdomen there was omentum stuck to the abdominal wall. We carefully freed this. Of course there was bowel stuck to this as well as up towards the abdominal wall. We carefully dissected free the bowel and the omentum meticulously with Metzenbaum scissors. Once we did this we had to further dissect free the lower abdominal adhesions on the bowel in order to identify the sigmoid colon this took quite a bit of time. We did do well over an hour of adhesiolysis and identified that the external portion of the sigmoid colon really looked quite healthy. The only issue was that the small bowel looked like it was tangled in a knot with the omentum and this was tangled onto the epiploic appendages of the colon and this was all headed down into the left lower quadrant over the sigmoid causing what appeared to be a mechanical blockage of the sigmoid because of the tethering of the small bowel and adhesion. We carefully freed this. This was also stuck to the bladder. This was all done using Metzenbaum scissors very meticulously. We freed the entire lower abdominal adhesions of the small bowel and colon in order to free the area of the colon that appeared to be strictured on the enema. Once we fully freed these adhesions we palpated the colon. It appeared to be normal. It looked much better after the tangles and adhesions were taken down. We did not go into the upper abdomen. These adhesions appeared to be more risk than benefit to be freed. They were not involved in the patient's problem at all but we completely freed the inferior adhesions as needed. We then took a good look. Everything was hemostatic. There were no concerning issues. There was one minor serosal tear of the bowel where it was stuck and this had been already immediately repaired with 3-0 PDS sutures in interrupted fashion and we rechecked this and this looked good. There were no other osseous defects or issues. The sigmoid colon was widely patent from an external standpoint. The bowels appeared to be normal and patent. We then did a small amount of irrigation. Bowels in their normal anatomical location placing them back over top, closed with 0 looped PDS suture in a running fashion. Irrigated the subcutaneous tissue and then closed the skin with kermit and sterile dressing. The patient tolerated the procedure very well. There were no immediate complications. He will be going to recovery and then be admitted to the floor. I have discussed all the findings with her family in the postoperative area.
[2018-05-04] MEDS: PROTONIX 40 MG IV IV SCH (19:32)
--- NOTE | 2018-05-04 20:00 | PCM.NOTE ---
Date and Time: 05/04/181955 Subjective Assessment: (Late entry for 08:50 this a.m., 05/04/2018) She is up washing her hair in the sink, sitting on the bedside commode. She has been tolerating her diet; had some nausea this morning but it resolved with lying down. Abd pain is an "ache." She is tearful this morning, worried that her adhesions will return. Does not want another surgery in the future. - Review of Systems Constitutional: No Fever (Tmax 100) Abdominal/Gastrointestinal: Abdominal Pain, Nausea, No Vomiting Objective Exam General Appearance: mild distress (tearful as noted in HPI), anxiety Neurologic Exam: alert, oriented x 3, cooperative Skin Exam: normal color, warm, dry, No rash Respiratory Exam: normal breath sounds, lungs clear, No crackles/rales, No rhonchi, No wheezing Cardiovascular Exam: regular rate/rhythm, normal heart sounds, No friction rub Gastrointestinal/Abdomen Exam: soft, normal bowel sounds, tenderness (mild, generalized), No distention, No guarding, No rebound Extremity Exam: normal inspection Back Exam: normal inspection, No rash OBJECTIVE DATA Vital Signs: Vital Signs - 24 hr Temp Pulse Resp BP Pulse Ox 05/04/18 19:21 99.2 F 82 17 118/64 92 L 05/04/18 15:37 98.9 F 80 20 116/68 90 L 05/04/18 11:00 97.9 F 73 20 113/62 90 L 05/04/18 07:23 98.3 F 77 20 125/79 95 05/04/18 06:40 93 L 05/04/18 04:00 98.4 F 70 20 114/62 95 05/04/18 00:00 99 F 87 20 103/58 93 L 05/03/18 23:18 93 L 05/03/18 20:00 100 F 87 18 102/65 90 L Oxygen-Last 24 hours O2 Percentage 4 Liters = 36% O2 Percentage 3 Liters = 32% O2 Percentage 3 Liters = 32% O2 Percentage 2 Liters = 28% O2 Percentage 2 Liters = 28% O2 Percentage 3 Liters = 32% O2 Percentage 2 Liters = 28% Pain Assessment - Last Documented Pain Intensity [Anterior] 4 Pain Intensity 6 Pain Scale Used 0-10 Pain Scale Intake and Output: Intake & Output 1005/03/18 05/04/18 05/05/18 11:59 11:59 11:59 11:59 Intake Total 3305 1398 4189 1140 Output Total 1575 4200 2300 3450 Balance 1730 -2802 1889 -2310 Lab Results: Lab Results-Last 24 Hours 04/30/18 05/04/18 05/04/18 Range/Units 05:10 05:25 05:25 WBC 10.3 (4.0-10.5) K/mm3 RBC 3.47 L (4.1-5.4) M/mm3 Hgb 10.1 L (12.0-16.0) gm/dl Hct 31.1 L (35-47) % MCV 89.6 (78-100) fl MCH 29.1 (26-32) pg MCHC 32.5 (32-36) g/dl RDW 13.2 (11.5-14.0) % Plt Count 259 (150-450) K/mm3 MPV 10.1 H (6-9.5) fl Smear Path Review Sodium 137 (137-145) mmol/L Potassium 3.3 L (3.5-5.1) mmol/L Chloride 98 (98-107) mmol/L Carbon Dioxide 33 H (22-30) mmol/L Anion Gap 9.3 (5-15) MEQ/L BUN 5 L (7-17) mg/dL Creatinine 0.70 (0.52-1.04) mg/dL Estimated GFR > 60.0 ML/MIN Glucose 116 H (74-106) mg/dL Calcium 8.4 (8.4-10.2) mg/dL Total Bilirubin 0.40 (0.2-1.3) mg/dL AST 18 (14-36) U/L ALT 21 (0-35) U/L Alkaline Phosphatase 89 (38-126) U/L Serum Total Protein 6.3 (6.3-8.2) g/dL Albumin 3.3 L (3.5-5.0) g/dL Multi-Disciplinary Progress Notes: Multi-Disciplinary Progress Notes 05/04/18 15:10 Nutrition Note by Allegra Sosa F/u Note: Soft diet ordered on 05/05. weight stable. Labs 05/04 = K+ 3.3, glu 116, BUN 5 , alb 3.3, hgb 10.1, hct 31.1. Recommend to con't with current diet. goal #1) po intake >50%. Will monitor and f/u prn. ANUM Pickens Initialized on 05/04/18 15:10 - END OF NOTE Assessment/Plan (1) s/p lysis of adhesions Current Visit: Yes Status: Acute Assessment & Plan: She is doing very well. She will discuss her concerns about adhesions with surgery, although she does realize they could return. (2) Hx of deep venous thrombosis Current Visit: Yes Status: Chronic Assessment & Plan: on lovenox. Code(s): Z86.718 - PERSONAL HISTORY OF OTHER VENOUS THROMBOSIS AND EMBOLISM (3) Elevated WBC count Current Visit: Yes Status: Resolved Code(s): D72.829 - ELEVATED WHITE BLOOD CELL COUNT, UNSPECIFIED (4) Headache Current Visit: Yes Status: Resolved Qualifiers: Headache type: tension-type Headache chronicity pattern: acute headache Intractability: intractable Qualified Code(s): G44.201 - Tension-type headache , unspecified, intractable Code(s): R51 - HEADACHE (5) Hypokalemia Current Visit: Yes Status: Acute Assessment & Plan: mild. recheck in a.m. Code(s): E87.6 - HYPOKALEMIA
[2018-05-04] MEDS ORDERED: Klor Con 10 MEQ PO ONE (22:35)
[2018-05-04] MEDS ORDERED: PHENERGAN 25 MG PO PRN (22:36)
[2018-05-05 05:53] LABS: Hematocrit 32.2 % (35-47); Hemoglobin 10.7 gm/dl (12.0-16.0); Mean Corpuscular Hemoglobin 29.2 pg (26-32); Mean Corpuscular Hgb Concent. 33.2 g/dl (32-36); Mean Platelet Volume 10.4 fl (6-9.5); Platelet Count 322 K/mm3 (150-450); Red Blood Count 3.66 M/mm3 (4.1-5.4); Red Cell Distribution Width 13.1 % (11.5-14.0); White Blood Count 9.5 K/mm3 (4.0-10.5)
[2018-05-05 06:12] LABS: ALKALINE PHOSPHATASE 87 U/L (38-126); ANION GAP 10.6 MEQ/L (5-15); BLOOD UREA NITROGEN 5 mg/dL (7-17); CHLORIDE 100 mmol/L (98-107); Calcium 8.3 mg/dL (8.4-10.2); Carbon Dioxide 31 mmol/L (22-30); Creatinine 1 0.57 mg/dL (0.52-1.04); Glucose 94 mg/dL (74-106); Potassium 3.2 mmol/L (3.5-5.1); SGOT/AST 15 U/L (14-36); SGPT/ALT 19 U/L (0-35); SODIUM 139 mmol/L (137-145); Total Protein 5.9 g/dL (6.3-8.2)
[2018-05-05] MEDS: ENOXAPARIN SODIUM SQ SCH (06:12)
[2018-05-05] MEDS: NORCO 5/325 MG PO PRN ×2 (06:24→11:50)
--- NOTE | 2018-05-05 09:02 | PCM.DS ---
Discharge Summary Date of Admission: 04/29/18 08:00 Admitting Physician: VASYL BARTHOLOMEW Primary Care Provider: TIMUR BUTLER Allergies Allergies codeine Allergy (Verified 04/29/18 08:31) fentanyl Allergy (Verified 04/29/18 08:31) prochlorperazine [From Compazine] Allergy (Verified 04/29/18 08:31) Hospital Summary - Hospital Course Hospital Course: Pt is 47 yo female pt of [facility] with history of multiple abdominal surgeries admitted by Dr. Vasyl Bartholomew for laparotomy - had extensive lysis of adhesions but no colon resected (for full details, see her operative note). Pt was on NG tube for several days postoperatively with a dilaudid [facility]. After the NG was removed she felt quite a bit better. Has been up out of bed, tolerating po well. Ready to shower today and be discharged to home. Her first postoperative day, she had an elevated WBC count to 29,000. She was just finishing her 24 hours of postoperative antibiotics, so flagyl and zosyn were started IV at that time. The WBC count decreased steadily from that point and has been normal for the past 2 days. Her potassium was normal initially, but has had a small drop the past 3 days ( 3.4, to 3.3, to 3.2 today). Magnesium level is pending. She has mild anemia which may be partially dilutional. Pt has been on O2 per NC (currently 3L) throughout her stay. Was not previously on oxygen. Will check CXR, but she has been afebrile. Will discharge her to home on oxygen. She does have a pulse oximeter and we discussed briefly weaning off of oxygen at home. Pt plans on home health care. Will follow up with me for this hospital stay, then may return to usual care with her nurse practitioner. - Vitals & Intake/Output Vital Signs: Vital Signs Temperature 98.8 F 05/05/18 07:20 Pulse Rate 76 05/05/18 07:20 Respiratory Rate 18 05/05/18 07:20 Blood Pressure 125/69 05/05/18 07:20 O2 Sat by Pulse Oximetry 96 05/05/18 07:20 Oxygen-Last Documented O2 Percentage 3 Liters = 32% Intake & Output: Intake & Output 05/02/18 05/03/18 05/04/18 05/05/18 11:59 11:59 11:59 11:59 Intake Total 3305 1398 4189 1840 Output Total 1577 4200 2300 4700 Balance 1730 -2802 1889 -2860 - Lab Result Diagrams: 05/05/18 05:35 05/05/18 05:35 Lab Results-Last 24 Hrs: Lab Results-Last 24 Hours 04/30/18 05/05/18 05/05/18 Range/Units 05:10 05:35 05:35 WBC 9.5 (4.0-10.5) K/mm3 RBC 3.66 L (4.1-5.4) M/mm3 Hgb 10.7 L (12.0-16.0) gm/dl Hct 32.2 L (35-47) % MCV 88.0 (78-100) fl MCH 29.2 (26-32) pg MCHC 33.2 (32-36) g/dl RDW 13.1 (11.5-14.0) % Plt Count 322 (150-450) K/mm3 MPV 10.4 H (6-9.5) fl Smear Path Review Sodium 139 (137-145) mmol/L Potassium 3.2 L (3.5-5.1) mmol/L Chloride 100 (98-107) mmol/L Carbon Dioxide 31 H (22-30) mmol/L Anion Gap 10.6 (5-15) MEQ/L BUN 5 L (7-17) mg/dL Creatinine 0.57 (0.52-1.04) mg/dL Estimated GFR > 60.0 ML/MIN Glucose 94 (74-106) mg/dL Calcium 8.3 L (8.4-10.2) mg/dL Total Bilirubin 0.30 (0.2-1.3) mg/dL AST 15 (14-36) U/L ALT 19 (0-35) U/L Alkaline Phosphatase 87 (38-126) U/L Serum Total Protein 5.9 L (6.3-8.2) g/dL Albumin 3.0 L (3.5-5.0) g/dL Micro Results-Entire Visit: Microbiology 04/29/18 10:34 Urine Culture - Final Urine, Catheterized NO GROWTH - Procedures and Test Procedures and Tests throughout Hospitalization: Therapy Orders & Screens 04/29/18 07:00 Respiratory Therapy Assessment DAILY Comment: Diagnosis: sigmoid stricture and sever adhesions. 04/29/18 17:08 Oxygen NASAL CANNULA 4 lpm Comment: Diagnosis: sigmoid stricture and sever adhesions. 04/30/18 12:01 Incentive Spirometry TID Comment: Diagnosis: sigmoid stricture and sever adhesions. Discharge Exam General Appearance: no apparent distress, alert Neurologic Exam: oriented x 3, cooperative Skin Exam: normal color, warm, dry, No rash Respiratory Exam: normal breath sounds, lungs clear, No crackles/rales, No rhonchi, No wheezing Cardiovascular Exam: regular rate/rhythm, normal heart sounds, No murmur Gastrointestinal/Abdomen Exam: soft, normal bowel sounds, other (midline wound with large, clean dressing), No tenderness, No guarding, No rebound Extremity Exam: No pedal edema, No swelling Back Exam: normal inspection, No rash Final Diagnosis/Problem List - Final Discharge Diagnosis/Problem (1) s/p lysis of adhesions Current Visit: Yes Status: Acute Assessment & Plan: Doing great. Home today on phenergan and norco per surgery. F/u with surgery as directed. F/u with me in 1 week. Will keep her on protonix for now. (2) Hx of deep venous thrombosis Current Visit: Yes Status: Chronic Assessment & Plan: postoperatively. Will look into prophylaxis at home - nothing ordered at this time. (3) Elevated WBC count Current Visit: Yes Status: Resolved (4) Headache Current Visit: Yes Status: Resolved (5) Hypokalemia Current Visit: Yes Status: Acute Assessment & Plan: checking Mg level. may need rx at home. home on potassium 20 mEq daily. - Discharge Disposition: Home, Self-Care Condition: Good Prescriptions: New Potassium Chloride 10 Meq Tab* [Klor Con 10 MEQ] 20 meq PO DAILY #30 tab Promethazine HCl 25 mg [Phenergan 25 mg] 12.5 mg PO Q8H PRN PRN tablet PRN Reason: Nausea/Vomiting PANTOPRAZOLE 40 mg Tablet [Protonix 40MG Tablet] 40 mg PO DAILY #30 tab Continue Hydrocodone Bit/Acetaminophen [Lortab 7.5-500 Tablet] 1 - 2 each PO Q4H PRN PRN Reason: Pain Multivitamin [Multivitamins] 1 each PO DAILY Aspirin/Acetaminophen/Caffeine [Excedrin Migraine Caplet] 1 each PO Q6H PRN PRN Reason: Headache Discontinued Sucralfate 1 gm [Carafate 1 GM] 1 g PO ACHS Follow up with: TIMUR BUTLER [Primary Care Provider] - 1 Week
[2018-05-05] MEDS ORDERED: Klor Con 10 MEQ PO SCH (10:00)
[2018-05-05 12:34] VITALS: O2SAT 97
--- NOTE | 2018-05-05 13:30 | XRAY ---
Indication: Short of breath. Desaturation. Comparison: None PA/lateral chest demonstrates small bibasilar effusions with adjacent atelectasis. Right suprahilar subsegmental atelectasis/scarring. Heart and mediastinal structures within normal limits. Bony thorax intact. Impression: Bibasilar effusions with atelectasis.
[2018-05-05 16:47] VITALS: BP 137/71; PULSE 77
[2018-05-05] MEDS ORDERED: Protonix 40MG Tablet PO SCH (20:00)
== END 2018-05-05 16:30 | disposition home or self-care (01) | DRG 390 ==
LOC: MED SURG 08:00
PROVIDERS: ADMIT Surgery; ATTEND Surgery
DX: K56.51 Intestinal adhesions [bands], with partial obstruction (principal); D72.829 Elevated white blood cell count, unspecified; R51 Headache; E87.6 Hypokalemia; Z86.718 Personal history of other venous thrombosis and embolism; Z72.0 Tobacco use
CPT/HCPCS: 36415; 71046; 80053; 83735; 85027; 87086; 90686; 94010; 94250; 94760; 94762; G0008; J0330; J0690; J0694; J1100; J1170; J1200; J1650; J1885; J1940; J2405; J2543; J2550; J2704; J3010; L0625; A9270-GY

== ENCOUNTER 2020-05-14 09:00 | Day surgery (SDC) | payer OTHER ==
[2020-05-14] MEDS ORDERED: Lactated Ringers 1,000 ML IV SCH (09:30)
[2020-05-14] MEDS ORDERED: Versed 2 MG/2 ML Injection ONE (10:33)
[2020-05-14] MEDS ORDERED: DIPRIVAN 200 MG/20 ML IV ONE ×3 (10:33→11:59)
[2020-05-14] MEDS ORDERED: Lactated Ringers 1,000 ML IV ONE (12:00)
--- NOTE | 2020-05-14 12:40 | HP ---
HISTORY: This is a patient who has a history of polyps. She also has a history of reflux as well as hiatal hernia. She is here for EGD and colonoscopy. PAST MEDICAL HISTORY: Reflux, hiatal hernia, polyps. PAST SURGICAL HISTORY: Multiple adhesiolysis surgeries. Cholecystectomy. Total abdominal hysterectomy, bilateral salpingo-oophorectomy. MEDICATIONS: Prilosec. ALLERGIES: CODEINE. FENTANYL. COMPAZINE. SOCIAL HISTORY: Quit tobacco. FAMILY HISTORY: Colon cancer. Chronic obstructive pulmonary disease. Stroke. Heart disease. Leukemia. PHYSICAL EXAMINATION: GENERAL: No acute distress. CVS: Regular rate and rhythm. PULMONARY: Nonlabored. ABDOMEN: Soft, nontender, nondistended. Incisions well healed. EXTREMITIES: Normal. DIAGNOSIS: Needs colonoscopy, history of polyps and reflux and hiatal hernia. PLAN: EGD and colonoscopy.
[2020-05-14 12:46] VITALS: O2SAT 96
--- NOTE | 2020-05-14 12:55 | OP ---
PROCEDURE DATE/TIME: 05/14/2020 1125 PREOPERATIVE DIAGNOSES: 1) Reflux disease. 2) Hiatal hernia. 3) History of colon polyps. POSTOPERATIVE DIAGNOSES: 1) Small hiatal hernia. 2) Gastroesophageal reflux disease. 3) Gastritis. 4) Normal colon. PROCEDURES: 1) EGD with biopsy. 2) Colonoscopy to cecum. PROCEDURE PERFORMED BY: Mónica Kraus M.D. ANESTHESIA: MAC. ESTIMATED BLOOD LOSS: Minimal. COMPLICATIONS: None. SPECIMEN: Antral biopsy to rule out Helicobacter pylori. HISTORY: This is a 49 year-old female who is well known to me. She presents for EGD and colonoscopy. She has reflux disease, has a known hiatal hernia and she also has colon polyps in her history. The patient was seen preoperatively and any remaining questions answered. H&P confirmed. DESCRIPTION OF PROCEDURE: She was brought back to the endoscopic suite. Anesthesia induced. Laid in her left lateral decubitus position. A time out done. The scope gently introduced into the mouth, oropharynx, down to the esophagus, stomach and duodenum. The duodenum was completely normal. The scope was passed to the level of the junction of the second and third portion of the duodenum and the entire duodenum was normal. The scope was withdrawn back into the stomach. The patient had gastritis throughout most significant in her antrum and her mid to upper gastric body. There was a speck of old blood here. I took an antral biopsy to rule out Helicobacter pylori disease. We also retroflexed and fully visualized the cardia. No masses or concerning lesions. The patient does have a small known hiatal hernia. The scope was unretroflexed and carefully withdrawn back into the esophagus. She does have some reflux disease. No signs of any Linton's disease here. Her hiatal hernia is about 1 to 2 cm. The remainder of the esophagus was normal. Scope completely withdrawn. The patient tolerated the procedure very well and no immediate complications. She was then repositioned for colonoscopy. First, a rectal exam was done and this was normal. The scope was then inserted and gently advanced to the level of the cecum. The cecum was identified clearly by the appendiceal orifice and the ileocecal valve. The prep was satisfactory. There was some liquid stool which was suctioned and irrigated. We carefully withdrew the scope taking a circumferential view. All the mucosa looked healthy. She did have some spasm in the sigmoid region but other than that she has a normal colon. Her hemorrhoidal tissue was normal. The scope was then completely removed. The patient tolerated the procedure very well. No immediate complications. PLAN: Continue proton pump inhibitor therapy due to the hiatal hernia, reflux disease and gastritis. EGD on an as needed basis. Plan for colonoscopy in approximately five years due to her history of polyps.
[2020-05-14 13:04] VITALS: BP 146/90; PULSE 91
== END 2020-05-14 13:15 | disposition home or self-care (01) ==
LOC: SDC 09:00
PROVIDERS: ATTEND Surgery
DX: Z09 Encounter for follow-up examination after completed treatment for conditions other than malignant neoplasm (principal); Z86.010 Personal history of colon polyps; Z80.0 Family history of malignant neoplasm of digestive organs; K44.9 Diaphragmatic hernia without obstruction or gangrene; K21.9 Gastro-esophageal reflux disease without esophagitis; Z79.899 Other long term (current) drug therapy
CPT/HCPCS: 93005; J2250; J2704